=== PATIENT | male | born 1990 | race Caucasian/White ===

== ENCOUNTER 2021-11-01 07:19 | Outpatient (CLI) | payer OTHER, SELFPAY | END 2021-11-01 07:20 | disposition home or self-care (01) | LOC: AMB 11-09 12:28 | PROVIDERS: Visit Provider Family Medicine | DX: S09.90XA Unspecified injury of head, initial encounter (principal); S79.912A Unspecified injury of left hip, initial encounter; W11.XXXA Fall on and from ladder, initial encounter; Y92.9 Unspecified place or not applicable | CPT/HCPCS: A0425; A0427 ==

== ENCOUNTER 2021-11-01 07:48 | Emergency (ER) | payer OTHER, SELFPAY ==
[2021-11-01] VITALS (7 sets, daily range): BP systolic 119–125; BP diastolic 74–90; PULSE 62–86; RESP 16; TEMP 36.3; O2SAT 99–100; BMI 166.8
--- NOTE | 2021-11-01 07:59 | CRLHL7_ITS ---
For Patients: As a result of the Century Cures Act, medical imaging exams and procedure reports are released immediately into your electronic medical record. You may view this report before your referring provider. If you have questions, please contact your health care provider. INDICATION: Trauma COMPARISON: None TECHNIQUE: CT examination of the cervical spine is performed without contrast using spiral technique. Thin axial, sagittal and coronal reconstructions were made. Please note that all CT scans at this facility use dose modulation, iterative reconstruction, and/or weight-based dosing when appropriate to reduce radiation dose to as low as reasonably achievable. FINDINGS: : There is no sign of fracture or subluxation. The cervical vertebral bodies and intervertebral discs are normal in height and are in anatomic alignment. No significant arthritic changes identified There is no sign of prevertebral soft tissue swelling. The airway structures are normal in appearance. The visualized skull base is normal in appearance. Brain detail is extremely limited by the use of bone technique, but no gross abnormality is seen. The apices of the lungs are clear. IMPRESSION: No visible acute post-traumatic findings. Please note that all CT scans at this facility use dose modulation, iterative reconstruction, and/or weight-based dosing when appropriate to reduce radiation dose to as low as reasonably achievable. Dictated by Montez Parmar MD @ 11/01/2021 8:28:29 AM (Electronically Signed)
--- NOTE | 2021-11-01 07:59 | CRLHL7_ITS ---
For Patients: As a result of the Century Cures Act, medical imaging exams and procedure reports are released immediately into your electronic medical record. You may view this report before your referring provider. If you have questions, please contact your health care provider. INDICATION: Fall from ladder. Left hip pain. TECHNIQUE: CT chest, abdomen, and pelvis acquired with 83 mL of Isovue 370 IV contrast. Coronal and sagittal reformats were generated. COMPARISON: None. FINDINGS: CHEST: Thyroid: Unremarkable. Thoracic lymph nodes: No enlarged supraclavicular, mediastinal, hilar, or axillary lymph nodes. Mediastinum and esophagus: Unremarkable. Heart and vasculature: Unremarkable. Lungs: Unremarkable. Pleura: Unremarkable. Chest wall: Unremarkable. ABDOMEN AND PELVIS: Liver: Unremarkable. No sign of acute injury. Gallbladder and bile ducts: Unremarkable. Spleen: Unremarkable. No sign of acute injury. Pancreas: Unremarkable. Adrenal glands: Unremarkable. No nodules. Kidneys and Ureters: Unremarkable. Lymph Nodes and Retroperitoneum: Unremarkable. Vasculature: Incidental note is made of a retroaortic left renal vein, a normal variant. GI tract: Unremarkable. Peritoneum/Abdominal Wall: Unremarkable. No mass or infiltration. No free air or free fluid. Pelvic Viscera: Unremarkable. Bladder: Unremarkable. Bones: No acute fracture or dislocation. IMPRESSION: Unremarkable CT of the chest, abdomen and pelvis. No sign of acute injury or significant disease. Please note that all CT scans at this facility use dose modulation, iterative reconstruction, and/or weight-based dosing when appropriate to reduce radiation dose to as low as reasonably achievable. Dictated by Rayo Dawson MD @ 11/01/2021 11:10:15 AM (Electronically Signed)
--- NOTE | 2021-11-01 08:00 | CRLHL7_ITS ---
For Patients: As a result of the Century Cures Act, medical imaging exams and procedure reports are released immediately into your electronic medical record. You may view this report before your referring provider. If you have questions, please contact your health care provider. INDICATION: Trauma COMPARISON: None TECHNIQUE: CT examination of the head was performed as axial sections without intravenous contrast. Images were obtained from the vertex of the skull through the skull base. Please note that all CT scans at this facility use dose modulation, iterative reconstruction, and/or weight-based dosing when appropriate to reduce radiation dose to as low as reasonably achievable. FINDINGS: The brain shows no sign of mass lesion, mass effect, hemorrhage, or edema. The ventricles and sulci are normal in appearance for the patient`s age. The visualized portions of the orbits are normal in appearance. The osseous structures are normal in their appearance with no sign of abnormality in the skull base or calvarium. IMPRESSION: Normal unenhanced head CT. Please note that all CT scans at this facility use dose modulation, iterative reconstruction, and/or weight-based dosing when appropriate to reduce radiation dose to as low as reasonably achievable. Dictated by Montez Parmar MD @ 11/01/2021 8:25:43 AM (Electronically Signed)
--- NOTE | 2021-11-01 08:01 | CRLHL7_ITS ---
For Patients: As a result of the Cures Act, medical imaging exams and procedure reports are released immediately into your electronic medical record. You may view this report before your referring provider. If you have questions, please contact your health care provider. INDICATION: Fall. Back pain. TECHNIQUE: CT images of the lumbar spine reconstructed from the abdomen pelvis following intravenous contrast. COMPARISON: None. FINDINGS: The lumbar lordosis is preserved. Vertebral heights maintained. No acute fracture or spondylolisthesis. Small multilevel age-indeterminate Schmorl`s nodes. No spinal canal or neural foraminal stenosis. IMPRESSION: 1. No acute fracture. 2. Small multilevel age-indeterminate Schmorl`s nodes. Please note that all CT scans at this facility use dose modulation, iterative reconstruction, and/or weight-based dosing when appropriate to reduce radiation dose to as low as reasonably achievable. Dictated by Estuardo Landa MD @ 11/01/2021 10:26:24 AM (Electronically Signed)
[2021-11-01 08:17] LABS: Basophils Absolute Auto 0.04 K/uL (0.00-0.30); Basophils Percent Auto 0.8 % (0.0-3.0); Eosinophils Absolute Auto 0.19 K/uL (0.00-0.50); Eosinophils Percent Auto 3.6 % (0.0-7.0); Hematocrit 38.7 % (37.0-53.0); Hemoglobin* 13.4 gm/dL (13.5-17.5); Immature Granulocytes Abs Auto 0.01 K/uL (0.00-0.30); Lymphocytes Absolute Auto 1.91 K/uL (0.90-2.90); Lymphocytes Percent Auto 36.1 % (20-44); Mean Corpuscular HGB Conc 35 gm/dL (32-36); Mean Corpuscular Hemoglobin 31 pg (26-34); Mean Corpuscular Volume 89 fL (80-100); Monocytes Percent Auto 4.9 % (0.0-11.0); Neutrophils Absolute Auto 2.88 K/uL (1.7-7.0); Neutrophils Percent Auto 54.4 % (42.0-72.0); Platelet Count* 192 K/uL (140-440); Red Blood Count 4.34 m/uL (4.30-5.90); White Blood Count* 5.29 K/uL (4.50-11.00)
--- NOTE | 2021-11-01 08:18 | ED_ITS ---
HPI - General Adult General Date Seen: 11/01/21 <Charlene Hu MD - Last Filed: 11/01/21 09:48> Chief complaint: Head Injury/Pain <Charlene Hu MD - Last Filed: 11/01/21 09:48> Stated complaint: Fall <Charlene Hu MD - Last Filed: 11/01/21 09:48> Time Seen by Provider: 11/01/21 07:59 <Charlene Hu MD - Last Filed: 11/01/21 09:48> Source: patient, EMS and RN notes reviewed <Charlene Hu MD - Last Filed: 11/01/21 09:48> Mode of arrival: EMS <Charlene Hu MD - Last Filed: 11/01/21 09:48> Limitations: no limitations <Charlene Hu MD - Last Filed: 11/01/21 09:48> History of Present Illness HPI narrative: Jovan is a 31-year-old male that was brought in on a trauma team activation after a fall off a ladder about [address] Boykin did a initial survey and then I assumed care. He did not lose consciousness, has no headache. He has some neck pain, left-sided abdominal pain, left hip/buttock/back pain. He denies any numbness or tingling anywhere. He can feel in his extremities in they feel normal. He has no extremity pain. He is not having any difficulty breathing, no shortness of breath, no chest pain. He reported the got 4 mg IV Zofran in route by EMS. He has been to the CT scan and has had his imaging and his back. He is having some discomfort. I have subsequently ordered 50 of IV fentanyl. He was at work up on the ladder getting boxes down off a Pallet. He just lost his balance. No mood altering substances. I a took over this patient's care after Dr. Joseph did an initial survey and had patient to go to CT scan. <Charlene Hu MD - Last Filed: 11/01/21 09:48> Jovan is a 31-year-old male that was brought in on a trauma team activation after a fall off a ladder about 10 [address] onto concrete floor[address] Boykin did a initial survey and then I assumed care. He did not lose consciousness, has no headache. He has some neck pain, left-sided abdominal pain, left hip/buttock/back pain. He denies any numbness or tingling anywhere. He can feel in his extremities in they feel normal. He has no extremity pain. He is not having any difficulty breathing, no shortness of breath, no chest pain. He reported the got 4 mg IV Zofran in route by EMS. He has been to the CT scan and has had his imaging and his back. He is having some discomfort. I have subsequently ordered 50 of IV fentanyl. He was at work up on the ladder getting boxes down off a Pallet. He just lost his balance. No mood altering substances. I a took over this patient's care after Dr. Joseph did an initial survey and had patient to go to CT scan. Note by Stepahni Boykin MD: Patient met in the back hallway. Patient fell 10 ft onto concrete from a ladder without loss of consciousness but did hit his head. Currently complaining of head pain and left hip pain. Upon further discussion also notes that neck is uncomfortable and that left lower quadrant is uncomfortable. He denies numbness or tingling, of vomiting. EMS did give pain medication as well as Zofran for nausea. Denies visual changes or difficulty breathing. Bedside examination prior to CT notes patient to be alert and oriented. EOM is full. Head appears atraumatic. Midline cervical tenderness noted on exam. Patient remains in caller. Heart with regular rate and rhythm and lungs are clear bilaterally. Mild tenderness of left lower quadrant without evidence of ecchymosis. Moving all extremities. Patient is moved to Radiology. CT of head, neck, chest abdomen and pelvis with IV contrast is ordered. Reyno labs ordered for lab. This case was signed out to my partner Dr. Lopez. <Stephani Joseph MD - Last Filed: 11/01/21 09:49> complaint: Fall from 10 ft ladder with neck, abdominal, hip/low back pain <Charlene Hu MD - Last Filed: 11/01/21 09:48> Onset (ago): minute(s) <Charlene Hu MD - Last Filed: 11/01/21 09:48> Severity: moderate <Charlene Hu MD - Last Filed: 11/01/21 09:48> Related Data Home medications: Home Medications Medication Instructions Recorded Confirmed omeprazole 20 mg capsule,delayed 20 mg PO DAILY 11/01/21 11/01/21 release <Charlene Hu MD - Last Filed: 11/01/21 09:48> Allergies/adverse reactions: Allergies Allergy/AdvReac Type Severity Reaction Status Date / Time cephalexin [From Keflex] Allergy Unknown Verified 11/01/21 08:08 <Charlene Hu MD - Last Filed: 11/01/21 09:48> Review of Systems Status of ROS: Reports: 10 or more systems reviewed and unremarkable except as noted in History and below <Charlene Hu MD - Last Filed: 11/01/21 09:48> PFSH PFSH Social History: Social History Smoking Status: Never smoker Do you use any of these nicotine containing products: None Second hand tobacco smoke exposure: No How often do you have a drink containing alcohol: 2-3 times a week AUDIT-C Alcohol total score: 3 Non-prescribed substance use: marijuana (any form) service: No <Charlene Hu MD - Last Filed: 11/01/21 09:48> Exam Const: Vital Signs, click to edit/add: Vital Signs - 24 hr 11/01/21 08:01 11/01/21 08:10 11/01/21 08:20 Temperature 97.3 F L Pulse Rate [Pulse Oximeter] 86 75 75 Respiratory Rate 16 16 16 Blood Pressure [Ri ght Upper Arm] 124/81 124/81 125/74 Pulse Oximetry 99 100 100 Oxygen Delivery Me thod Room Air Room Air Room Air 11/01/21 08:30 11/01/21 08:40 11/01/21 09:00 Temperature Pulse Rate [Pulse Oximeter] 62 69 76 Respiratory Rate 16 16 Blood Pressure [Ri ght Upper Arm] 125/90 H 119/84 Pulse Oximetry 99 99 Oxygen Delivery Me thod Room Air Room Air 11/01/21 08:50 Temperature Pulse Rate [Pulse Oximeter] 75 Respiratory Rate 16 Blood Pressure [Ri ght Upper Arm] 121/79 Pulse Oximetry 99 Oxygen Delivery Me thod Room Air <Charlene Hu MD - Last Filed: 11/01/21 09:48> Vital Signs, click to edit/add: Vital Signs - 24 hr 11/01/21 08:01 11/01/21 08:10 11/01/21 08:20 Temperature 97.3 F L Pulse Rate [Pulse Oximeter] 86 75 75 Respiratory Rate 16 16 16 Blood Pressure [Ri ght Upper Arm] 124/81 124/81 125/74 Pulse Oximetry 99 100 100 Oxygen Delivery Me thod Room Air Room Air Room Air 11/01/21 08:30 11/01/21 08:40 11/01/21 09:00 Temperature Pulse Rate [Pulse Oximeter] 62 69 76 Respiratory Rate 16 16 Blood Pressure [Ri ght Upper Arm] 125/90 H 119/84 Pulse Oximetry 99 99 Oxygen Delivery Me thod Room Air Room Air 11/01/21 08:50 Temperature Pulse Rate [Pulse Oximeter] 75 Respiratory Rate 16 Blood Pressure [Ri ght Upper Arm] 121/79 Pulse Oximetry 99 Oxygen Delivery Me thod Room Air <Stephani Joseph MD - Last Filed: 11/01/21 09:49> Documenting provider has reviewed patient's vital signs: yes <Charlene Hu MD - Last Filed: 11/01/21 09:48> Common normals: no apparent distress, oriented x3, no limitations, healthy appearing, alert and well nourished <Charlene Hu MD - Last Filed: 11/01/21 09:48> General appearance: cooperative, comfortable and well kempt <Charlene Hu MD - Last Filed: 11/01/21 09:48> Nutritional appearance: thin <Charlene Hu MD - Last Filed: 11/01/21 09:48> Other: Has C-collar in place <Charlene Hu MD - Last Filed: 11/01/21 09:48> HENMT: Common normals: normocephalic, head/scalp atraumatic, hearing grossly normal bilaterally, external ears normal, external nose normal, nasal mucous membranes and turbinates normal, moist oral mucous membranes, oropharynx normal, dentition normal (He feels his teeth occlude normally) and gingiva normal <Charlene Hu MD - Last Filed: 11/01/21 09:48> Head and scalp: normocephalic and atraumatic <Charlene Hu MD - Last Filed: 11/01/21 09:48> Nose: external nose normal and nasal mucous membranes and turbinates normal <Charlene Hu MD - Last Filed: 11/01/21 09:48> External ear: external ears normal <MD Trey Stephen Last Filed: 11/01/21 09:48> Eye: Common normals: PERRL, EOMs intact bilaterally, conjunctivae normal and no scleral icterus <Charlene Hu MD - Last Filed: 11/01/21 09:48> Conjunctiva: conjunctiva(e) normal <Charlene Hu MD - Last Filed: 11/01/21 09:48> Pupil: PERRL <MD Trey Stephen Last Filed: 11/01/21 09:48> Neck & C-Spine: General: normal visual inspection and trachea midline <MD Trey Stephen Last Filed: 11/01/21 09:48> Other: Does have some right paraspinous tenderness when I palpate behind with his C collar on. <Charlene Hu MD - Last Filed: 11/01/21 09:48> Lymph: Lymphatic: no lymphadenopathy noted <MD Trey Stephen Last Filed: 11/01/21 09:48> Chest: Common normals: inspection of chest normal and palpation of chest normal <MD Trey Stephen Last Filed: 11/01/21 09:48> Resp: Common normals: normal respiratory effort, no retractions, no use of accessory muscles and clear to auscultation bilaterally <MD Trey Elias Last Filed: 11/01/21 09:48> Auscultation: clear to auscultation bilaterally <MD Trey Stephen Last Filed: 11/01/21 09:48> Cardio: Common normals: regular rate, regular rhythm, S1 normal heart sound, S2 normal heart sound, no gallops, no clicks and no murmurs <Charlene Hu MD - Last Filed: 11/01/21 09:48> Rate: regular rate <MD Trey Stephen Last Filed: 11/01/21 09:48> Rhythm: regular rhythm <MD Trey Stephen Last Filed: 11/01/21 09:48> Heart sounds: S1 normal and S2 normal <MD Trey Stephen Last Filed: 11/01/21 09:48> GI: Common normals: Normal to inspection, nondistended, normoactive bowel sounds present, soft to palpation, non-tender, no hepatosplenomegaly and no masses <MD Trey Stephen Last Filed: 11/01/21 09:48> Palpation: soft and no hepatosplenomegaly <MD Trey Stephen Last Filed: 11/01/21 09:48> Back & Pelvis: Common normals: thoracic and lumbar spine normal to inspection and no thoracic nor lumbar tenderness <MD Trey Stephen Last Filed: 11/01/21 09:48> Extremity: Common normals: normal to inspection, full ROM, normal capillary refill, no joint enlargement, no clubbing, cyanosis or edema, no calf tenderness and no pedal edema <MD Trey Stephen Last Filed: 11/01/21 09:48> Neuro: [place] Coma Scale: document GCS findings [place] coma scale eye opening: Spontaneous (4) [place]leen coma scale verbal response: Orientated (5) [place] coma scale motor response: Obey commands (6) [place] coma scale total score: 15 <MD Trey Stephen Last Filed: 11/01/21 09:48> [place] Coma Scale: document GCS findings [place] coma scale total score: 15 <Stephani Joseph MD - Last Filed: 11/01/21 09:49> Common normals: oriented x3, CN's II-XII intact bilaterally, moves all extremities, no focal motor deficits and no sensory deficits noted <Charlene Hu MD - Last Filed: 11/01/21 09:48> Sensorium/orientation: alert <Charlene Hu MD - Last Filed: 11/01/21 09:48> Psych: Appearance: well kempt <Charlene Hu MD - Last Filed: 09:48> Course Course Hospital Course: Have ordered patient fentanyl for pain control, he will be monitored on pulse oximetry and cardiac monitoring. We are waiting pending CT results and lab results. He is neurologically intact and maintained hemodynamic stability at this time. <Charlene Hu MD - Last Filed: 11/01/21 09:48> Reevaluation(s) Reevaluation #1: Reviewed with patient his imaging is not showing any acute findings. His labs are stable minus the awaiting urinalysis. At this time he is going to attempt to ambulate to the bathroom to provide urinalysis. He will let me know if there are new complaints or concerns with the ambulation. We did give him 15 mg IV Toradol for further pain control once we had normal CT findings. It is reviewed with him that he will likely go home, would anticipate he might be developing some bruising in that left buttock side area. <Charlene Yeager MD - Last Filed: 11/01/21 09:48> Time: 09:14 <Charlene Hu MD - Last Filed: 11/01/21 09:48> Vital Signs Vital signs: Initial Vital Signs Temperature 97.3 F L 11/01/21 08:01 Temperature Source Temporal Artery Scan 11/01/21 08:01 Pulse Rate 86 11/01/21 08:01 Pulse Rhythm 11/01/21 08:01 Pulse Strength 3+ Normal 11/01/21 08:01 Respiratory Rate 16 11/01/21 08:01 Blood Pressure 124/81 11/01/21 08:01 Blood Pressure Mean 95 11/01/21 08:01 Blood Pressure Position Supine 11/01/21 08:01 Pulse Oximetry 99 11/01/21 08:01 Oxygen Delivery Method 11/01/21 08:01 Vital Signs Temperature 97.3 F L 11/01/21 08:01 Pulse Rate 86 11/01/21 08:01 Respiratory Rate 16 11/01/21 08:01 Blood Pressure 124/81 11/01/21 08:01 Pulse Oximetry 99 11/01/21 08:01 Oxygen Delivery Method 11/01/21 08:01 Temperature 97.3 F L 11/01/21 08:01 Pulse Rate 76 11/01/21 09:00 Respiratory Rate 16 11/01/21 09:00 Blood Pressure 119/84 11/01/21 09:00 Pulse Oximetry 99 11/01/21 09:00 Oxygen Delivery Method 11/01/21 09:00 <Charlene Hu MD - Last Filed: 11/01/21 09:48> Initial Vital Signs Temperature 97.3 F L 11/01/21 08:01 Temperature Source Temporal Artery Scan 11/01/21 08:01 Pulse Rate 86 11/01/21 08:01 Pulse Rhythm 11/01/21 08:01 Pulse Strength 3+ Normal 11/01/21 08:01 Respiratory Rate 16 11/01/21 08:01 Blood Pressure 124/81 11/01/21 08:01 Blood Pressure Mean 95 11/01/21 08:01 Blood Pressure Position Supine 11/01/21 08:01 Pulse Oximetry 99 11/01/21 08:01 Oxygen Delivery Method 11/01/21 08:01 Vital Signs Temperature 97.3 F L 11/01/21 08:01 Pulse Rate 86 11/01/21 08:01 Respiratory Rate 16 11/01/21 08:01 Blood Pressure 124/81 11/01/21 08:01 Pulse Oximetry 99 11/01/21 08:01 Oxygen Delivery Method 11/01/21 08:01 Temperature 97.3 F L 11/01/21 08:01 Pulse Rate 76 11/01/21 09:00 Respiratory Rate 16 11/01/21 09:00 Blood Pressure 119/84 11/01/21 09:00 Pulse Oximetry 99 11/01/21 09:00 Oxygen Delivery Method 11/01/21 09:00 <Stephani Joseph MD - Last Filed: 11/01/21 09:49> Medical Decision Making Lab Data Lab results reviewed: Yes I reviewed the patient's lab results <Charlene Hu MD - Last Filed: 11/01/21 09:48> Labs: Lab Results 11/01/21 11/01/21 11/01/21 Range/Units 08:10 08:10 08:10 WBC 5.29 (4.50-11.00) K/uL RBC 4.34 (4.30-5.90) m/uL Hgb 13.4 L (13.5-17.5) gm/dL Hct 38.7 (37.0-53.0) % MCV 89 (80-100) fL MCH 31 (26-34) pg MCHC 35 (32-36) gm/dL RDW Coeff of Madeline 12.0 (11.5-15.5) % Plt Count 192 (140-440) K/uL Neut % (Auto) 54.4 (42.0-72.0) % Lymph % (Auto) 36.1 (20-44) % [place] % (Auto) 4.9 (0.0-11.0) % Eos % (Auto) 3.6 (0.0-7.0) % Baso % (Auto) 0.8 (0.0-3.0) % Neut # (Auto) 2.88 (1.7-7.0) K/uL Lymph # (Auto) 1.91 (0.90-2.90) K/uL [place] # (Auto) 0.30 (0.00-0.90) K/UL Eos # (Auto) 0.19 (0.00-0.50) K/uL Baso # (Auto) 0.04 (0.00-0.30) K/uL Abs Immat Gran (auto) 0.01 (0.00-0.30) K/uL INR 1.00 (0.91-1.10) Sodium 134 L (135-149) mmol/L Potassium 4.1 (3.6-5.1) mmol/L Chloride 105 (96-114) mmol/L Carbon Dioxide 24 (20-32) mmol/L BUN 15 (5-24) mg/dL Creatinine 1.0 (0.5-1.5) mg/dL Estimated Creat Clear 116.74 Estimated GFR 103 ml/min Glucose 126 H (60-115) mg/dL Calcium 8.9 (8.4-10.6) mg/dL Total Bilirubin 0.4 (0.1-1.5) mg/dL AST 24 (12-35) U/L ALT 16 (4-50) U/L Alkaline Phosphatase 75 (40-150) U/L Total Protein 6.3 (6.0-8.3) g/dL Albumin 3.9 (3.3-5.0) g/dL Urine Color (Yellow) Urine Appearance (Clear) Urine pH (5.0-8.5) Ur Specific [place] (1.000-1.030) Urine Protein (Negative) Urine Glucose (UA) (Negative) Urine Ketones (Negative) Urine Blood (Negative) Urine Nitrite (Negative) Urine Bilirubin (Negative) Urine Urobilinogen (0.2-1.0) Ur Leukocyte Esterase (Negative) 11/01/21 Range/Units 09:08 WBC (4.50-11.00) K/uL RBC (4.30-5.90) m/uL Hgb (13.5-17.5) gm/dL Hct (37.0-53.0) % MCV (80-100) fL MCH (26-34) pg MCHC (32-36) gm/dL RDW Coeff of Madeline (11.5-15.5) % Plt Count (140-440) K/uL Neut % (Auto) (42.0-72.0) % Lymph % (Auto) (20-44) % [place] % (Auto) (0.0-11.0) % Eos % (Auto) (0.0-7.0) % Baso % (Auto) (0.0-3.0) % Neut # (Auto) (1.7-7.0) K/uL Lymph # (Auto) (0.90-2.90) K/uL [place] # (Auto) (0.00-0.90) K/UL Eos # (Auto) (0.00-0.50) K/uL Baso # (Auto) (0.00-0.30) K/uL Abs Immat Gran (auto) (0.00-0.30) K/uL INR (0.91-1.10) Sodium (135-149) mmol/L Potassium (3.6-5.1) mmol/L Chloride (96-114) mmol/L Carbon Dioxide (20-32) mmol/L BUN (5-24) mg/dL Creatinine (0.5-1.5) mg/dL Estimated Creat Clear Estimated GFR ml/min Glucose (60-115) mg/dL Calcium (8.4-10.6) mg/dL Total Bilirubin (0.1-1.5) mg/dL AST (12-35) U/L ALT (4-50) U/L Alkaline Phosphatase (40-150) U/L Total Protein (6.0-8.3) g/dL Albumin (3.3-5.0) g/dL Urine Color Yellow (Yellow) Urine Appearance Clear (Clear) Urine pH 7.0 (5.0-8.5) Ur Specific [place] 1.015 (1.000-1.030) Urine Protein Negative (Negative) Urine Glucose (UA) Negative (Negative) Urine Ketones Negative (Negative) Urine Blood Negative (Negative) Urine Nitrite Negative (Negative) Urine Bilirubin Negative (Negative) Urine Urobilinogen 0.2 (0.2-1.0) Ur Leukocyte Esterase Negative (Negative) <Charlene Hu MD - Last Filed: 11/01/21 09:48> Lab Results 11/01/21 11/01/21 11/01/21 Range/Units 08:10 08:10 08:10 WBC 5.29 (4.50-11.00) K/uL RBC 4.34 (4.30-5.90) m/uL Hgb 13.4 L (13.5-17.5) gm/dL Hct 38.7 (37.0-53.0) % MCV 89 (80-100) fL MCH 31 (26-34) pg MCHC 35 (32-36) gm/dL RDW Coeff of Madeline 12.0 (11.5-15.5) % Plt Count 192 (140-440) K/uL Neut % (Auto) 54.4 (42.0-72.0) % Lymph % (Auto) 36.1 (20-44) % [place] % (Auto) 4.9 (0.0-11.0) % Eos % (Auto) 3.6 (0.0-7.0) % Baso % (Auto) 0.8 (0.0-3.0) % Neut # (Auto) 2.88 (1.7-7.0) K/uL Lymph # (Auto) 1.91 (0.90-2.90) K/uL [place] # (Auto) 0.30 (0.00-0.90) K/UL Eos # (Auto) 0.19 (0.00-0.50) K/uL Baso # (Auto) 0.04 (0.00-0.30) K/uL Abs Immat Gran (auto) 0.01 (0.00-0.30) K/uL INR 1.00 (0.91-1.10) Sodium 134 L (135-149) mmol/L Potassium 4.1 (3.6-5.1) mmol/L Chloride 105 (96-114) mmol/L Carbon Dioxide 24 (20-32) mmol/L BUN 15 (5-24) mg/dL Creatinine 1.0 (0.5-1.5) mg/dL Estimated Creat Clear 116.74 Estimated GFR 103 ml/min Glucose 126 H (60-115) mg/dL Calcium 8.9 (8.4-10.6) mg/dL Total Bilirubin 0.4 (0.1-1.5) mg/dL AST 24 (12-35) U/L ALT 16 (4-50) U/L Alkaline Phosphatase 75 (40-150) U/L Total Protein 6.3 (6.0-8.3) g/dL Albumin 3.9 (3.3-5.0) g/dL Urine Color (Yellow) Urine Appearance (Clear) Urine pH (5.0-8.5) Ur Specific [place] (1.000-1.030) Urine Protein (Negative) Urine Glucose (UA) (Negative) Urine Ketones (Negative) Urine Blood (Negative) Urine Nitrite (Negative) Urine Bilirubin (Negative) Urine Urobilinogen (0.2-1.0) Ur Leukocyte Esterase (Negative) 11/01/21 Range/Units 09:08 WBC (4.50-11.00) K/uL RBC (4.30-5.90) m/uL Hgb (13.5-17.5) gm/dL Hct (37.0-53.0) % MCV (80-100) fL MCH (26-34) pg MCHC (32-36) gm/dL RDW Coeff of Madeline (11.5-15.5) % Plt Count (140-440) K/uL Neut % (Auto) (42.0-72.0) % Lymph % (Auto) (20-44) % [place] % (Auto) (0.0-11.0) % Eos % (Auto) (0.0-7.0) % Baso % (Auto) (0.0-3.0) % Neut # (Auto) (1.7-7.0) K/uL Lymph # (Auto) (0.90-2.90) K/uL [place] # (Auto) (0.00-0.90) K/UL Eos # (Auto) (0.00-0.50) K/uL Baso # (Auto) (0.00-0.30) K/uL Abs Immat Gran (auto) (0.00-0.30) K/uL INR (0.91-1.10) Sodium (135-149) mmol/L Potassium (3.6-5.1) mmol/L Chloride (96-114) mmol/L Carbon Dioxide (20-32) mmol/L BUN (5-24) mg/dL Creatinine (0.5-1.5) mg/dL Estimated Creat Clear Estimated GFR ml/min Glucose (60-115) mg/dL Calcium (8.4-10.6) mg/dL Total Bilirubin (0.1-1.5) mg/dL AST (12-35) U/L ALT (4-50) U/L Alkaline Phosphatase (40-150) U/L Total Protein (6.0-8.3) g/dL Albumin (3.3-5.0) g/dL Urine Color Yellow (Yellow) Urine Appearance Clear (Clear) Urine pH 7.0 (5.0-8.5) Ur Specific [place] 1.015 (1.000-1.030) Urine Protein Negative (Negative) Urine Glucose (UA) Negative (Negative) Urine Ketones Negative (Negative) Urine Blood Negative (Negative) Urine Nitrite Negative (Negative) Urine Bilirubin Negative (Negative) Urine Urobilinogen 0.2 (0.2-1.0) Ur Leukocyte Esterase Negative (Negative) <Stephani Joseph MD - Last Filed: 11/01/21 09:49> Imaging Data CT scan - head: Attestation: I have reviewed the pertinent imaging results. <Charlene Yeager MD - Last Filed: 11/01/21 09:48> Radiologist's impression: Patient: MARJORIE NOVA Facility:?[facility] Patient ID:?[id number] Site Patient ID:?[id number]. Site :?1990 Study:?CT Head -11/01/2021 8:16:37 AM Ordering Physician:Emeka Chang Final Report: INDICATION: Trauma COMPARISON: None TECHNIQUE: CT examination of the head was performed as axial sections without intravenous contrast. Images were obtained from the vertex of the skull through the skull base. Please note that all CT scans at this facility use dose modulation, iterative reconstruction, and/or weight-based dosing when appropriate to reduce radiation dose to as low as reasonably achievable. FINDINGS: The brain shows no sign of mass lesion, mass effect, hemorrhage, or edema. The ventricles and sulci are normal in appearance for the patient`s age. The visualized portions of the orbits are normal in appearance. The osseous structures are normal in their appearance with no sign of abnormality in the skull base or calvarium. IMPRESSION: Normal unenhanced head CT. Please note that all CT scans at this facility use dose modulation, iterative reconstruction, and/or weight-based dosing when appropriate to reduce radiation dose to as low as reasonably achievable. Dictated by Montez Parmar MD @ 11/01/2021 8:25:43 AM (Electronic Signature) <Charlene Hu MD - Last Filed: 11/01/21 09:48> CT- Other: Attestation: I have reviewed the pertinent imaging results. <Charlene Yeager MD - Last Filed: 11/01/21 09:48> Radiologist's impression: Patient: MARJORIE NOVA Facility:?[facility] Patient ID:?[id number] Site Patient ID:?[id number]. Site :?1990 Study:?CT Spine Cervical -11/01/2021 8:17:38 AM Ordering Physician:Emeka Chang Final Report: INDICATION: Trauma COMPARISON: None TECHNIQUE: CT examination of the cervical spine is performed without contrast using spiral technique. Thin axial, sagittal and coronal reconstructions were made. Please note that all CT scans at this facility use dose modulation, iterative reconstruction, and/or weight-based dosing when appropriate to reduce radiation dose to as low as reasonably achievable. FINDINGS: : There is no sign of fracture or subluxation. The cervical vertebral bodies and intervertebral discs are normal in height and are in anatomic alignment. No significant arthritic changes identified There is no sign of prevertebral soft tissue swelling. The airway structures are normal in appearance. The visualized skull base is normal in appearance. Brain detail is extremely limited by the use of bone technique, but no gross abnormality is seen. The apices of the lungs are clear. IMPRESSION: No visible acute post-traumatic findings. Please note that all CT scans at this facility use dose modulation, iterative reconstruction, and/or weight-based dosing when appropriate to reduce radiation dose to as low as reasonably achievable. Dictated by Montez Parmar MD @ 11/01/2021 8:28:29 AM (Electronic Signature) <Charlene Hu MD - Last Filed: 11/01/21 09:48> CT Chest/Ab/Pelvis: Attestation: I have reviewed the pertinent imaging results. <Charlene Yeager MD - Last Filed: 11/01/21 09:48> Radiologist's impression: Patient: MARJORIE NOVA Facility:?[facility] Patient ID:?[id number] Site Patient ID:?[id number]. Site :?1990 Study:?CT Chest/Abd/Pelvis 83CC ISOVUE 370-11/01/2021 8:26:12 AM Ordering Physician:Emeka Chang Preliminary Report: There is no visible acute posttraumatic process involving the chest, abdomen or pelvis. There is no acute osseous injury including the left hip. No lumbar spine or thoracic spine fracture. Dictated by Montez Parmar MD @ 11/01/2021 8:51:00 AM Read by:?Montez Parmar MD @ 11/01/2021 08:51:01 <Charlene Hu MD - Last Filed: 11/01/21 09:48> Lumbar spine CT: Attestation: I have reviewed the pertinent imaging results. <Charlene Yeager MD - Last Filed: 11/01/21 09:48> Radiologist's impression: Patient: MARJORIE NOVA Facility:?[facility] Patient ID:?[id number] Site Patient ID:?[id number]. Site :?1990 Study:?CT Spine Lumbar -11/01/2021 8:42:23 AM Ordering Physician:Emeka Chang Preliminary Report: There is no visible acute posttraumatic process involving the chest, abdomen or pelvis. There is no acute osseous injury including the left hip. No lumbar spine or thoracic spine fracture. Read by:?Montez Parmar MD @ 11/01/2021 08:52:07 <Charlene Hu MD - Last Filed: 11/01/21 09:48> Critical Care Time Critical Care Time Critical Care Time: No <Charlene Hu MD - Last Filed: 11/01/21 09:48> Discharge Plan Discharge Clinical Impression: Fall from ladder, Closed head injury <Charlene Hu MD - Last Filed: 11/01/21 09:48> Condition: Stable <Charlene Hu MD - Last Filed: 11/01/21 09:48> Instructions: Head Injury (ED), Contusion in Adults (ED) <Charlene Hu MD - Last Filed: 11/01/21 09:48> Additional Instructions: As discussed, would expect that you might see some areas of bruising developed particularly overlying that left hip/buttock area. Ice these painful areas for the next 24-48 hours to help minimize pain and bruising. Can use Tylenol and/or ibuprofen as needed per bottle directions for pain control. Should you have symptoms of ongoing headache, dizziness, nausea, any symptoms concerning for concussion that are going beyond the 1st couple days after this injury, do recommend follow up in clinic with your primary care provider. If there are any new or concerning symptoms that should develop acutely after this fall, please seek re-evaluation. <Charlene Hu MD - Last Filed: 11/01/21 09:48> Activity Level: Activity as Tolerated <Charlene Hu MD - Last Filed: 11/01/21 09:48> Activity as Tolerated <Stephani Joseph MD - Last Filed: 11/01/21 09:49> Prescriptions: No Action omeprazole 20 mg capsule,delayed release(DR/EC) 20 mg PO DAILY <Charlene Hu MD - Last Filed: 11/01/21 09:48> Stand Alone Forms: [employer] Info Instructions <Charlene Hu MD - Last Filed: 11/01/21 09:48>
[2021-11-01 08:24] LABS: Slide Review Reflex No
[2021-11-01] MEDS: fentaNYL 100 MCG/2 ML inj 50 MCG IVP (08:27)
[2021-11-01 08:29] LABS: Albumin* 3.9 g/dL (3.3-5.0); Chloride* 105 mmol/L (96-114); Sodium* 134 mmol/L (135-149)
[2021-11-01 08:30] LABS: Potassium* 4.1 mmol/L (3.6-5.1)
[2021-11-01 08:32] LABS: Alkaline Phosphatase* 75 U/L (40-150); Aspartate Amino Transferase* 24 U/L (12-35); Bilirubin Total* 0.4 mg/dL (0.1-1.5); Blood Urea Nitrogen* 15 mg/dL (5-24); Carbon Dioxide* 24 mmol/L (20-32); Est. Creatinine Clearance* 116.74; Estimated Glomerular Filt Rate 103 ml/min; Total Protein* 6.3 g/dL (6.0-8.3)
[2021-11-01 08:33] LABS: Alanine Aminotransferase* 16 U/L (4-50); Calcium* 8.9 mg/dL (8.4-10.6); Glucose* 126 mg/dL (60-115)
[2021-11-01 08:36] LABS: Prothrombin Time 13.6 Seconds
[2021-11-01] MEDS: KETOROLAC 15 MG/ML inj IVP (09:02)
[2021-11-01 09:22] LABS: Appearance Urine Clear (Clear); Bilirubin Urine Negative (Negative); Blood Urine Negative (Negative); Color Urine Yellow (Yellow); Glucose Urine Negative (Negative); Ketones Urine Negative (Negative); Leukocyte Esterase Urine Negative (Negative); Nitrite Urine Negative (Negative); Protein Urine Negative (Negative); Specific Gravity Urine 1.015 (1.000-1.030); Urobilinogen Urine 0.2 (0.2-1.0)
--- NOTE | 2021-11-01 09:45 | ED.NURSE ---
Patient was discharged. DC summary reviewed and understood by patient. PIV was taken out and catheter intact. Patient was able to ambulate to bathroom without difficulty. Patient had no further questions and left via ambulatory.
[2021-11-04 13:19] LABS: RBC Urine 0-2 (0-2); WBC Urine 0-2 (0-5)
== END 2021-11-01 09:45 | disposition home or self-care (01) ==
LOC: ED 09:46
PROVIDERS: Emergency Provider Family Medicine
DX: S09.90XA Unspecified injury of head, initial encounter (principal); M54.9 Dorsalgia, unspecified; S70.02XA Contusion of left hip, initial encounter; W11.XXXA Fall on and from ladder, initial encounter
CPT/HCPCS: 36415; 70450; 71260; 72125; 72131; 74177; 80053; 81001; 85025; 85610; 96374; 96375; 99285; 99291; G0390; J1885; J3010; Q9967